=== PATIENT | male | born 1975 | race African-American/Black ===

== ENCOUNTER 2017-12-31 22:10 | Emergency (ER) | payer OTHER ==
[~2017-12-31] VITALS: Ht 185.4 cm; Wt 77.1 kg
[2017-12-31] MEDS ORDERED: Solu-MEDROL 125mg Inj ONE (22:21)
[2017-12-31] MEDS ORDERED: DiphenhydrAMINE 50mg/ml Inj ONE (22:21)
[2017-12-31 22:27] VITALS: BP 120/85
[2017-12-31] MEDS ORDERED: Solu-MEDROL 125mg Inj IVP ONE (22:30)
[2017-12-31] MEDS ORDERED: DiphenhydrAMINE 50mg/ml Inj IVP ONE (22:30)
[2017-12-31] MEDS ORDERED: BENADRYL25 MG ORAL (23:21)
[2017-12-31] MEDS ORDERED: PREDNISONE20 MG ORAL (23:21)
--- NOTE | 2017-12-31 23:22 | Emergency Room Report ---
History of Present Illness General Chief Complaint: Allergic Reaction Source: Patient Present Illness HPI Is a 42-year-old male presents with allergic reaction. Couple days ago he had his dupree dyed. Afterward his face getting inflamed and red. Also with blistering and scabbing over. He had this similar episode before when he did this. Also when he had his hair dyed. Denies any rest or complaint. Has not take anything for this. Worse with scratching. Better with holding still. Allergies: Uncoded Allergies: DYE (Allergy, Severe, 12/31/17) Patient History Past Medical History: see triage record, old chart reviewed Past Surgical History: none Pertinent Family History: none Social History: Denies: smoking Immunizations: other Reviewed Nursing Documentation: PMH: Agreed; PSxH: Agreed Nursing Documentation-PMH Past Medical History: No History, Except For Review of Systems Eye: Denies: eye pain, blurred vision ENT: Denies: ear pain, nose congestion, throat swelling Respiratory: Denies: cough, shortness of breath Cardiovascular: Denies: chest pain, palpitations Gastrointestinal: Denies: abdominal pain, diarrhea, nausea, vomiting Musculoskeletal: Denies: back pain, joint pain Skin: Denies: rash Neurological: Denies: headache, numbness Endocrine: Denies: increased thirst, increased urine Hematologic/Lymphatic: Denies: easy bruising All Other Systems: negative except mentioned in HPI Physical Exam Vital Signs Date Time Temp Pulse Resp B/P (MAP) Pulse Ox O2 Delivery O2 Flow Rate FiO2 12/31/17 22:15 98.4 93 17 120/85 100 Room Air vitals normal Sp02 EP Interpretation: reviewed, normal General Appearance: well appearing, no apparent distress, alert Head: normocephalic, atraumatic Eyes: bilateral eye PERRL, bilateral eye EOMI ENT: hearing grossly normal, normal pharynx, other - Lower jaw area with edema and crusting of blisters. Neck: full range of motion, supple, no meningismus Respiratory: chest non-tender, lungs clear, normal breath sounds Cardiovascular #1: regular rate, rhythm, no murmur Gastrointestinal: normal bowel sounds, non tender, no mass, no organomegaly, no bruit, non-distended Musculoskeletal: back normal, gait/station normal, normal range of motion Psychiatric: mood/affect normal Skin: warm/dry Medical Decision Making Diagnostic Impression: Primary Impression: Allergic reaction Qualified Codes: T78.40XA - Allergy, unspecified, initial encounter ER Course Patient with allergic reaction and also possibly chemical burn. Better after Benadryl. We'll continue his signing Medrol and Benadryl. No evidence of anaphylaxis. No evidence of rest or distress. Last Vital Signs Date Time Temp Pulse Resp B/P (MAP) Pulse Ox O2 Delivery O2 Flow Rate FiO2 12/31/17 22:27 91 19 Room Air 12/31/17 22:27 98.4 120/85 100 Status: improved Disposition: HOME, SELF-CARE Condition: Stable Scripts Prednisone* (PREDNISONE*) 20 Mg Tablet 40 MG ORAL DAILY, #10 TAB Prov: Dony Galaviz MD 12/31/17 Diphenhydramine Hcl* (BENADRYL*) 25 Mg Capsule 50 MG ORAL Q6H PRN for Itching, #30 CAP Prov: Dony Galaviz MD 12/31/17 Patient Instructions: Allergies Additional Instructions: Do not use any dye product on your scalp or your dupree. Follow-up with your doctor in 7 days. Return if worse. Dony Galaviz MD Dec 31, 2017 23:22
[2017-12-31 23:47] VITALS: BP 112/83
[2017-12-31 23:51] VITALS: BP 112/83
== END 2017-12-31 23:54 | disposition home or self-care (01) ==
LOC: EMR 23:20
DX: T78.40XA Allergy, unspecified, initial encounter (principal); X58.XXXA Exposure to other specified factors, initial encounter
CPT/HCPCS: 96374; 96375; 99284; J1200; J2930

== ENCOUNTER 2018-01-12 21:50 | Emergency (ER) | payer OTHER, MEDICARE ==
[~2018-01-12] VITALS: Ht 188 cm; Wt 77.1 kg
[~2018-01-12 21:50] MED LIST: BENADRYL25 MG ORAL; PREDNISONE20 MG ORAL
[2018-01-12 22:00] VITALS: BP 104/63
[2018-01-12] MEDS ORDERED: NKM (22:07)
[2018-01-12] MEDS ORDERED: CLOTRIMAZOLE15 GM TOPIC (22:42)
[2018-01-12] MEDS ORDERED: CEPHALEXIN500 MG ORAL (22:42)
[2018-01-12 23:00] VITALS: BP 104/63
--- NOTE | 2018-01-13 04:39 | Emergency Room Report ---
History of Present Illness General Chief Complaint: Skin Rash/Abscess Source: Patient Present Illness HPI 42-year-old male presents ED for evaluation. States there is irritation and rash to his scrotum 3 days. States it is itchy. Denies pain. Denies fevers chills. Denies any urethral discharge. Denies any recent unprotected sex. No other aggravating relieving factors. Denies any other associated symptoms Allergies: Uncoded Allergies: DYE (Allergy, Severe, 12/31/17) Patient History Past Medical History: none Past Surgical History: none Pertinent Family History: none Social History: Denies: smoking, alcohol use, drug use Immunizations: UTD Reviewed Nursing Documentation: PMH: Agreed; PSxH: Agreed Nursing Documentation-PMH Past Medical History: No History, Except For Review of Systems All Other Systems: negative except mentioned in HPI Physical Exam Vital Signs Date Time Temp Pulse Resp B/P (MAP) Pulse Ox O2 Delivery O2 Flow Rate FiO2 01/12/18 22:00 98.4 99 16 104/63 97 Room Air Sp02 EP Interpretation: reviewed, normal General Appearance: no apparent distress, alert, GCS 15, non-toxic Head: normocephalic Eyes: bilateral eye normal inspection, bilateral eye PERRL ENT: normal ENT inspection Neck: normal inspection Respiratory: normal inspection Cardiovascular #1: normal inspection Gastrointestinal: normal inspection Rectal: deferred Genitourinary: no CVA tenderness, other - erythema to scrotum. non tender. no testicular pain Musculoskeletal: normal inspection Neurologic: alert, oriented x3, responsive, motor strength/tone normal, sensory intact, speech normal Psychiatric: normal inspection Skin: other - erythema to scrotum Lymphatic: normal inspection Medical Decision Making Diagnostic Impression: Primary Impression: Irritation of scrotum ER Course Hospital Course 42-year-old male presents to ED with redness to scrotal wall Differential diagnoses include: Cellulitis, dermatitis, insect bite, abscess Clinical course Patient placed on stretcher. After initial history, physical exam reveals a male in no acute distress. On exam there is erythema and induration to the scrotum. Flaking skin noted. No testicular pain. No urethral discharge. No history suggestive of STD. We will cover for fungal infection with superimposed bacterial infection. Discussed findings with patient. We will discharge with [facility]. i will provide urology referrals Diagnosis - irritation of scrotum stable and discharged to home with prescription for clotrimazole, Keflex. Instructed to followup with PMD/urology. Instructed return to ED if symptoms recur or worsen Last Vital Signs Date Time Temp Pulse Resp B/P (MAP) Pulse Ox O2 Delivery O2 Flow Rate FiO2 01/12/18 23:00 98.4 99 16 104/63 97 Room Air Status: improved Disposition: HOME, SELF-CARE Condition: Stable Scripts Cephalexin* (KEFLEX*) 500 Mg Capsule 500 MG ORAL EVERY 6 HOURS for 7 Days, CAP Prov: Doug Laird MD 01/12/18 Clotrimazole* (LOTRIMIN*) 15 Gm Cream..g. 1 APPLIC TOPIC TWICE A DAY, #15 GM Prov: Doug Laird MD 01/12/18 Referrals: Rogelio Piña M.D. NOT CHOSEN IPA/,REFERRING (PCP) Patient Instructions: Doug Maradiaga MD Jan 13, 2018 04:39
== END 2018-01-12 23:15 | disposition home or self-care (01) ==
LOC: EMR 22:51
DX: N50.89 Other specified disorders of the male genital organs (principal); F17.200 Nicotine dependence, unspecified, uncomplicated; Z91.048 Other nonmedicinal substance allergy status
CPT/HCPCS: 99282